=== PATIENT | female | born 1990 ===

== ENCOUNTER 2021-04-10 10:41 | Outpatient (CLI) | payer OTHER | END 2021-04-10 12:43 | disposition home or self-care (01) | LOC: PRENATAL 10:41 | PROVIDERS: ATTEND Obstetrics & Gynecology Maternal & Fetal Medicine | DX: O02.0 Blighted ovum and nonhydatidiform mole (principal); O36.80X2 Pregnancy with inconclusive fetal viability, fetus 2; O30.91 Multiple gestation, unspecified, first trimester; Z36.89 Encounter for other specified antenatal screening; Z3A.11 11 weeks gestation of pregnancy ==

== ENCOUNTER 2021-06-13 12:34 | Outpatient (CLI) | payer OTHER | END 2021-06-13 15:05 | disposition home or self-care (01) | LOC: PRENATAL 12:34 | PROVIDERS: ATTEND Obstetrics & Gynecology Maternal & Fetal Medicine | DX: O35.0XX2 Maternal care for (suspected) central nervous system malformation in fetus, fetus 2 (principal); O35.3XX2 Maternal care for (suspected) damage to fetus from viral disease in mother, fetus 2; O98.512 Other viral diseases complicating pregnancy, second trimester; O26.852 Spotting complicating pregnancy, second trimester; O35.1XX2 Maternal care for (suspected) chromosomal abnormality in fetus, fetus 2; Z36.89 Encounter for other specified antenatal screening; Z3A.20 20 weeks gestation of pregnancy ==